=== PATIENT | male | born 1995 | race African-American/Black ===

== ENCOUNTER 2023-02-06 15:38 | Emergency (ER) | payer SELFPAY ==
[2023-02-06 16:29] VITALS: BP 127/88; PULSE 70
[2023-02-06] MEDS: cefTRIAXone 500 MG Vial IM SCH (17:07)
[2023-02-06] MEDS: cefTRIAXone 500 MG Vial ONE (17:07)
[2023-02-06] MEDS: Lidocaine 1% PF 2 ML SDV INJECT ONE (17:08)
[2023-02-06] MEDS: Azithromycin 250 MG Tab PO SCH (17:08)
== END 2023-02-06 17:14 | disposition home or self-care (01) ==
LOC: LB.ED 15:38
DX: Z20.2 Contact with and (suspected) exposure to infections with a predominantly sexual mode of transmission (principal)
CPT/HCPCS: 96372; 99283; A9270-GY; J0696

== ENCOUNTER 2023-02-11 00:45 | Emergency (ER) | payer SELFPAY ==
[2023-02-11 01:58] LABS: BUN/CREATININE RATIO 7.5 (6-25); CALCIUM 9.1 mg/dL (8.5-10.1); CARBON DIOXIDE,CO2 30.9 mmol/L (21.0-32.0); CREATININE 1.06 mg/dL (0.70-1.30); EST CRCL DRUG DOSING (CG) 126.22 mL/min; POTASSIUM,K 3.9 mmol/L (3.5-5.1)
[2023-02-11] MEDS ORDERED: Doxycycline 100 MG Cap ONE (02:00)
[2023-02-11 02:01] LABS: MUCUS,URINE OCCASIONAL /HPF; RBC,URINE 0-5 /HPF; SQUAMOUS EPITHELIAL CELLS,UR OCCASIONAL /HPF
== END 2023-02-11 02:16 | disposition home or self-care (01) ==
LOC: LB.ED 00:45
DX: R30.0 Dysuria (principal)
CPT/HCPCS: 36415; 80048; 81001; 99283; A9270-GY